=== PATIENT | female | born 1995 | race African-American/Black ===

== ENCOUNTER 2020-02-28 12:13 | Emergency (ER) | payer BC ==
[2020-02-28 22:18] LABS: SARS-CoV-2 MS2 Positive; SARS-CoV-2 N Gene Negative; SARS-CoV-2 S Gene Negative; SARS-CoV-2 by NAA Not Detected (NotDetected); SARS-CoV-2 orf1ab Negative
== END 2020-02-28 13:38 | disposition home or self-care (01) ==
LOC: ERS 12:13
DX: J02.9 Acute pharyngitis, unspecified (principal); Z20.828 Contact with and (suspected) exposure to other viral communicable diseases; J45.909 Unspecified asthma, uncomplicated
CPT/HCPCS: 87635; 99283; U0003